=== PATIENT | female | born 1985 | race Caucasian/White ===

== ENCOUNTER → 2023-08-05 10:43 | Outpatient (REF) | payer OTHER, SELFPAY | LOC: HWRAD 10:43 | PROVIDERS: ATTENDING PHYSICIAN Nurse Practitioner Family; FAMILY PHYSICIAN Family Medicine | DX: N83.202 Unspecified ovarian cyst, left side (principal) | CPT/HCPCS: 76830; 76856 ==

== ENCOUNTER → 2023-09-09 07:48 | Outpatient (REF) | payer OTHER, SELFPAY | LOC: RAD 07:48 | PROVIDERS: ATTENDING PHYSICIAN Family Medicine | DX: R10.13 Epigastric pain (principal); K80.20 Calculus of gallbladder without cholecystitis without obstruction | CPT/HCPCS: 78226; A9537 ==

== ENCOUNTER → 2024-07-15 09:47 | Outpatient (REF) | payer OTHER, SELFPAY | LOC: RAD 09:47 | PROVIDERS: ATTENDING PHYSICIAN Internal Medicine Gastroenterology; FAMILY PHYSICIAN Family Medicine | DX: R10.13 Epigastric pain (principal); K59.00 Constipation, unspecified | CPT/HCPCS: 78264; A9541 ==

== ENCOUNTER → 2024-07-22 08:27 | Outpatient (REF) | payer OTHER, SELFPAY | LOC: RAD 08:27 | PROVIDERS: ATTENDING PHYSICIAN Internal Medicine Gastroenterology; FAMILY PHYSICIAN Family Medicine | DX: K59.00 Constipation, unspecified (principal) | CPT/HCPCS: 74270 ==

== ENCOUNTER 2024-08-13 04:22 | Day surgery (SDC) | payer OTHER, SELFPAY ==
[2024-08-13] VITALS (13 sets, daily range): BP systolic 122–145; BP diastolic 66–84; BMI 23.8; BMI 24.2
[2024-08-13] MEDS: DILAUDID 0.5 MG IV ×3 (00:44→05:10)
[2024-08-13] MEDS: ZOFRAN 4 MG IV ×2 (00:45→05:10)
[2024-08-13 00:59] LABS: HCG, Serum Qualitative Screen Negative
[2024-08-13 01:03] LABS: % Basophils 1.5 % (0-2); % Immature Granulocytes 0.9 % (0-0.5); % Lymphocytes 43.7 % (20.5-51.1); % Monocytes 9.2 % (1.7-9.3); % Neutrophils 41.7 % (42.2-75.2); Absolute Basophils 0.1 10^3/uL (0-0.2); Absolute Eosinophils 0.3 10^3/uL (0-0.7); Absolute Immature Granulocytes 0.1 10^3/uL (0-0.05); Absolute Lymphocytes 3.6 10^3/uL (1.2-3.4); Absolute Monocytes 0.8 10^3/uL (0.1-0.6); Absolute Neutrophils 3.4 10^3/uL (1.4-6.5); Hematocrit 38.3 % (37.0-47.0); Hemoglobin 13.2 g/dL (12.0-16.0); Mean Corp Hgb Conc. 34.5 g/dL (33.0-37.0); Mean Corpuscular Hgb 29.5 pg (27.0-31.0); Mean Corpuscular Volume 85.7 fL (81.0-99.0); Mean Platelet Volume 11.1 fL (7.4-10.4); Nucleated Red Blood Cells % 0 %; Platelet Count 240 10^3/uL (130-400); Red Blood Cell Count 4.47 10^6/uL (4.20-5.40); Red Cell Dist. Width 12.6 % (11.5-14.5); White Blood Cell Count 8.2 10^3/uL (4.8-10.8)
[2024-08-13 01:09] LABS: ALT (SGPT) 21 U/L (0-35); AST (SGOT) 21 U/L (14-36); Albumin 4.3 g/dl (3.5-5.0); Alkaline Phosphatase 51 U/L (38-126); Blood Urea Nitrogen 8 mg/dl (7-17); Calcium 9.8 mg/dl (8.4-10.2); Carbon Dioxide 22 mmol/L (22-30); Chloride 110 mmol/L (98-107); Estimated Creatinine Clearance 97 ml/min; Glucose 118 mg/dl (70-99); Lipase 315 U/L (23-300); Potassium 4.4 mmol/L (3.5-5.1); Sodium 141 mmol/L (135-145); Total Bilirubin 0.5 mg/dl (0.2-1.3); Total Protein 7.1 g/dl (6.3-8.2); eGFR > 60.00
--- NOTE | 2024-08-13 01:42 | ED.GENMED ---
History of Present Illness
General
Chief Complaint: Abdominal Pain
Source: patient
Exam Limitations: none
Time Seen by Provider: 08/13/24 00:41
Nursing documentation reviewed up to this point in time: agreed with
History of Present Illness
History of Present Illness:
Pleasant 38-year-old female presents to the emergency department with right upper quadrant abdominal pain. She states that the pain has been more severe than normal. Patient has had gallbladder pain since 2021. She has had a history of
cholelithiasis and is scheduled for surgery with Dr. Velasco. Derick she had severe pain which she states is much worse than her typical pain so she came into the emergency department. Reports nausea without vomiting. Patient has had several
doses of IV pain medication with minimal relief.
Past History
Past History
ED Past Medical History: HTN and Other (Irritable bowel syndrome, ovarian cyst, SVT)
ED Past Surgical History: Cardiac (Cardiac ablation), Gynecological and Orthopedic (Spinal fusion)
Social History
Tobacco: Non-smoker
Drug: None
Review of Systems
Review of Systems
Allergies reviewed?: Yes
All Other Systems: ROS reviewed and negative except as documented in HPI and ROS
Constitutional: Reports no symptoms
EENT: Reports no symptoms
Respiratory: Reports no symptoms
Cardiac: Reports no symptoms
ABD/GI: Reports abdominal pain and nausea; Denies vomiting, diarrhea or constipated
: Reports no symptoms
Musculoskeletal: Reports no symptoms
Skin: Reports no symptoms
Neurological: Reports no symptoms
Endocrine: Reports no symptoms
Hematologic/Lymphatic: Reports no symptoms
Psychiatric: Reports anxiety
Phy Exam
General Physical Exam
General Presentation: moderate distress
General age: appears stated age
General Skin: warm and dry
General Habitus: normal
General Mental: alert
General Hydration: appears well hydrated
Cardiovascular Exam
Cardiovascular Exam: regular rate/rhythm and no edema
Pulmonary Exam
Pulmonary Exam: lungs clear and no respiratory distress
Gastrointestinal Exam
Gastrointestinal Exam: normal bowel sounds, no organomegaly, non distended and guarding
Palpation: left upper quadrant: No tenderness, left lower quadrant: No tenderness, right upper quadrant: Severe tenderness and right lower quadrant: No tenderness
Neurological Exam
Neurological Exam: alert and oriented x3
Musculoskeletal Exam
Musculoskeletal Exam: full ROM and neuro vasc intact
Skin Exam
Skin Exam: normal color and warm/dry
Psychiatric Exam
Psychiatric Exam: normal mood/affect
Course
Orders/Labs/Results
Orders:
Orders
08/13/24 00:19
Test Result ONCE
08/13/24 00:36
Complete Blood Count/With Diff Urgent
Comprehensive Metabolic Panel Urgent
HCG, Serum Qualitative Screen Urgent
Lipase Urgent
08/13/24 00:41
HYDROmorphone [Dilaudid] 0.5 mg IV NOW STA
Ondansetron Injectable [Zofran] 4 mg IV NOW STA
08/13/24 00:42
US Abdomen Complete/Upper Urgent
Comment:
Reason For Exam: ruq abd pain
08/13/24 01:34
HYDROmorphone [Dilaudid] 0.5 mg .ROUTE .STK-MED ONE
08/13/24 01:43
HYDROmorphone [Dilaudid] 0.5 mg IV NOW STA
08/13/24 02:00
Piperacillin/Tazo 4.5 Gram [Zosyn] 4.5 gram in 100 ml IV NOW
Abnormal Lab Results
08/13/24
00:36
MPV 11.1 H fL
(7.4-10.4)
Abs Immat Gran (auto) 0.1 H 10^3/uL
(0-0.05)
Absolute Lymphs (auto) 3.6 H 10^3/uL
(1.2-3.4)
Absolute Monos (auto) 0.8 H 10^3/uL
(0.1-0.6)
Immature Gran % 0.9 H %
(0-0.5)
Neutrophils % 41.7 L %
(42.2-75.2)
Chloride 110 H mmol/L
(98-107)
Glucose 118 H mg/dl
(70-99)
Lipase 315 H U/L
(23-300)
08/13/24 00:36
08/13/24 00:36
Vital Signs
Initial and Last Documented VS:
Initial Vital Signs
Temp Pulse Resp BP Pulse Ox
97.5 F 71 24 139/81 100
08/13/24 00:10 08/13/24 00:10 08/13/24 00:10 08/13/24 00:10 08/13/24 00:10
Last Documented Vital Signs
Temp Pulse Resp BP Pulse Ox
97.5 F 71 24 139/81 100
08/13/24 00:10 08/13/24 00:10 08/13/24 00:10 08/13/24 00:10 08/13/24 00:10
*Radiology
Radiology exam reviewed: radiology read reviewed
*Critical Care Note
Total Time (30-74mins, 75-104mins- exclusive of procedures): Not Applicable
Update Note
Update Note:
ABDOMINAL ULTRASOUND
IMPRESSION
Multiple gallstones, difficult to evaluate the neck for an impacted stone given the shear number of stones .. No sonographic Delgado's sign (but the patient received pain medications). Borderline gallbladder wall thickening at 3.8 mm. No
pericholecystic fluid, or other signs of cholecystitis. Common bile duct is unremarkable. Constellation findings are nonspecific , consider further workup or followup ultrasound especially if symptoms persist or progress.
Kidneys and spleen are unremarkable
Remainder of the visualized upper abdomen is unremarkable.
Spoke with Dr. Dunn, general surgery who recommended patient be made n.p.o., started on Zosyn, admitted to his service with probable OR in the morning.
Patient is allergic to amoxicillin. She states that she gets stomach upset. She has had penicillin in the past without issue. She agrees to take the Zosyn.
House nurse practitioner aware and will admit patient to Dr. Dunn service.
ED Attending Note
-
Portions of this chart may have been created with voice recognition software.� Occasional wrong word or��sound alike� substitutions may have occurred due to the inherent limitations of voice recognition software.
Discharge Plan
Departure
Patient Disposition: Admit
Date of Disposition: 08/13/24
Time of Disposition: 02:24
Admit to: Med/Surg
Presentation/result/management discussed w/ accepting MD/DO: Dr. Dunn
Discharge Problem:
Biliary colic, Cholelithiasis, Probable cholecystitis
Prescriptions:
No Action
acetaminophen 325 MG tablet
650 mg PO Q3HPRN PRN (Reason: mild pain) 0RF
multivitamin [One-A-Day Essential] 1 EACH tablet
1 ea PO DAILY
diltiazem HCl 120 MG tablet
120 mg PO HS
Referrals:
Jose Antonio Hall, DO [Family Provider] -
Interventions
Interventions:
*Risk Screen - Suicide Last Done: 08/13/24 00:10
*ED- Fall Risk Assessment Last Done: 08/13/24 00:55
*ED COVID-19 Vaccine History Last Done: 08/13/24 00:55
OR-Rlvpli-Pshdknnxkm Assessment Last Done: 08/13/24 00:55
Discharge Date and Time
Print Language: KYRGYZ
--- NOTE | 2024-08-13 02:32 | HPS.HSE ---
Addendum entered and electronically signed by Kurt Dunn MD 08/13/24 09:05:
I saw and examined the patient independently.
The [employer]'s note was reviewed and I agree with the note, assessment and plan except where noted below.
Comment: This is a 38-year-old female who presents with postprandial right upper quadrant pain, known cholelithiasis and diagnosed with biliary colic with plan for surgery in 2 weeks however had her most significant attack last night which prompted
her to come into our ED. She draw tender to palpation in the right upper quadrant concerning for acute cholecystitis.
Will plan for laparoscopic cholecystectomy with cholangiogram in the OR today.
N.p.o., IV fluids, IV Zosyn.
Risks/Benefits/Alternatives, expected postoperative course and possible complications (bleeding, infection, injury to surrounding structures, acute/chronic pain) discussed at length. Patient wishes to proceed with surgery. All questions answered.
Consent obtained.
I spent 45 minutes in total for the care of this patient today including direct patient care and counseling, reviewing labs, imaging, coordination of care, as well as documentation.
Original Note:
Family Physician
-
Family Physician: Jose Antonio Hall
Chief Complaint
-
Abdominal pain
History of Present Illness
Patient is a 38 year old female, with past medical history significant for HTN, Hx of SVT s/p ablation 2006, IBS, ovarian cyst, hysterectomy, lumbar fusion 2004, who presents to the emergency department with right upper quadrant pain. She states it
is more severe than normal. Patient with gall bladder pain since 2001. She has had a history of cholelithiasis and is scheduled for surgery with Dr. Velasco on 08/25/2024. Tonight she had severe pain which she states is much worse than her typical
pain so she came into the emergency department. Reports nausea without vomiting. Patient has had several doses of IV pain medication with minimal relief.
In the emergency department, vital signs stable, afebrile. Lipase noted to be elevated at 315. Otherwise, labs unremarkable. Patient received Dilaudid and Zofran for symptom management in the emergency dpeartment.
Abdominal ultrasound impression:
Multiple gallstones, difficult to evaluate the neck for an impacted stone given the shear number of stones .. No sonographic Delgado's sign (but the patient received pain medications). Borderline gallbladder wall thickening at 3.8 mm. No
pericholecystic fluid, or other signs of cholecystitis. Common bile duct is unremarkable. Constellation findings are nonspecific , consider further workup or followup ultrasound especially if symptoms persist or progress.
Kidneys and spleen are unremarkable
Remainder of the visualized upper abdomen is unremarkable.
Emergency provider spoke with Dr. Dunn, General Surgery, who will accept patient to be admitted to his service. Patient made NPO, started on Zosyn, pain medication, antiemetics and IV fluids. Plan for probable OR in the morning. Note: Patient is
allergic to amoxicillin. States that she gets stomach upset. She has had penicillin in the past without issue. Patient agreeable to take Zosyn.
Medical History
Past Medical History
Past Medical History: Reports Arrhythmia (Hx of SVT, ablation in 2006), HTN and Other (Irritable bowel syndrome, ovarian cyst)
Past Surgical History: Reports Cardiac (Ablation 2006), (x2, 2015, 2017), Gynocological (Emergency hysterectomy, 2017; etopic post hysterectomy) and Orthopedic (Lumbar fusion, 2004)
Social History
Tobacco: Non-smoker
Alcohol: None
Drug: None
Personal:
Living: With Family
Employment: Employed
Family History
Family History: Not pertinent
Allergies / Home Medications
Allergies reflects when Allergies were last updated in [facility].
Home Medications with original date entered in [facility]
Allergy/Medication List:
Patient Allergies
Allergy/AdvReac Type Severity Reaction Status Date / Time
adhesive Allergy Unknown Unknown Verified 08/13/24 00:10
amoxicillin Allergy Unknown Verified 08/13/24 00:10
Home Medications
�Medication �Instructions �Recorded
norgestrel-ethinyl estradiol 1 PO DAILY 08/13/24
propranolol 10 mg tablet 10 mg PO BID 08/13/24
propranolol 20 mg tablet 20 mg PO QHS 08/13/24
Review of Systems
-
History Source: Patient
Constitutional: Reports No Symptoms
EENT: Reports No Symptoms
Respiratory: Reports No Symptoms
Cardiac: Reports No Symptoms
Abdomen/GI: Reports Abdominal Pain (right upper quadrant) and Nausea
: Reports No Symptoms
Musculoskeletal: Reports No Symptoms
Skin: Reports No Symptoms
Neurological: Reports No Symptoms
Endocrine: Reports No Symptoms
Hematologic/Lymphatic: Reports No Symptoms
Psych: Reports No Symptoms
Physical Exam
Vital Signs
Vital Signs
Temp Pulse Resp BP Pulse Ox
97.5 F 71 24 139/81 100
08/13/24 00:10 08/13/24 00:10 08/13/24 00:10 08/13/24 00:10 08/13/24 00:10
Physical Exam
General: Appears in Distress (moderate) and Pain (right upper quadrant)
HEENT: NormoCephalic, Moist mucous membranes and PERRLA
Respiratory: Clear and Non Labored Respirations
Cardiac: S1/S2 and Regular Rhythm
GI: Normal Bowel Sounds and Tender (right upper quadrant)
Musculoskeletal: No Edema
Neuro: AO x 3
Psych: Intact Judgment/Insight
Laboratory Results
-
08/13/24 00:36
08/13/24 00:36
Laboratory Results
Total Bilirubin 0.5 mg/dl (0.2-1.3) 08/13/24 00:36
AST 21 U/L (14-36) 08/13/24 00:36
ALT 21 U/L (0-35) 08/13/24 00:36
Alkaline Phosphatase 51 U/L (38-126) 08/13/24 00:36
Lipase 315 U/L (23-300) H 08/13/24 00:36
Data Reviewed
-
Ultrasound: Report Reviewed by me
Lab Data: Labs Reviewed by me
Impression/Plan
-
IMPRESSION:
Patient is a 38 year old female, with past medical history significant for HTN, Hx of SVT s/p ablation 2006, IBS, ovarian cyst, hysterectomy, lumbar fusion 2004, who presents to the emergency department with right upper quadrant pain.
PLAN:
Biliary colic
Cholelithiasis
Probable Cholecystitis
- Admit to Med/Surg, Dr. Dunn, General Surgery service
- NPO
- IV fluids NSS @ 85 mls/hr
- Pain medication/antiemetics
-IV Zosyn
HTN
- Continue Propanolol
DVT Prophylaxis: SCD's
Code Status: Full code
[2024-08-13] MEDS: ZOSYN 100 IV (03:00)
[2024-08-13] MEDS: NSS 1000 IV (05:09)
--- NOTE | 2024-08-13 05:44 | PTCARENOTE ---
Pt arrived to floor via stretcher from the ED. Pt AAOx3, ambulatory into room independently without difficulty. EKG obtained per MD order, SB with SA with HR in the 50's. POX 97% on RA. Pt with hx of Raynods pox difficulty to obtain on finders, ear
POX obtained. Hypo bowel, round abd. Right upper quadrant ABD pain 5/10, pain medication administered as ordered. Palpable peripheral pulses present. Pale skin, red calderon from tele leads noted. Left hand int in place infusing NSS@85ml/hr. Zofran
administered for Nausea. NPO status maintained for possible surgery. Pt now resting comfortably. Will continue to monitor.
[2024-08-13 06:49] LABS: Hematocrit 41.1 % (37.0-47.0); Hemoglobin 13.8 g/dL (12.0-16.0); Mean Corp Hgb Conc. 33.6 g/dL (33.0-37.0); Mean Corpuscular Hgb 29.4 pg (27.0-31.0); Mean Corpuscular Volume 87.4 fL (81.0-99.0); Mean Platelet Volume 11.4 fL (7.4-10.4); Platelet Count 228 10^3/uL (130-400); Red Cell Dist. Width 12.6 % (11.5-14.5); White Blood Cell Count 8.7 10^3/uL (4.8-10.8)
[2024-08-13 07:11] LABS: Blood Urea Nitrogen 7 mg/dl (7-17); Calcium 9.9 mg/dl (8.4-10.2); Carbon Dioxide 25 mmol/L (22-30); Chloride 107 mmol/L (98-107); Estimated Creatinine Clearance 97 ml/min; Glucose 126 mg/dl (70-99); Lipase 124 U/L (23-300); Potassium 4.5 mmol/L (3.5-5.1); Sodium 142 mmol/L (135-145); eGFR > 60.00
[2024-08-13] MEDS: INDERAL 10 MG PO ×2 (08:22→17:09)
--- NOTE | 2024-08-13 08:56 | W.SUR.PREOP ---
Pre-Operative Surgical Note
-
I have examined this patient prior to the performance of the scheduled procedure.
The patient's condition is unchanged from the time of the current History and
Physical and the patient is able to undergo the scheduled procedure.
[2024-08-13] MEDS: ZOSYN 50 IV ×2 (09:57→15:41)
--- NOTE | 2024-08-13 12:26 | W.IMMPOSTOP ---
Surgical Immed Post Op Note
-
Primary Surgeon: Kurt Dunn MD
Assisting Surgeon: None
Pre-op Diagnosis: Acute cholecystitis
Post-op Diagnosis: Acute cholecystitis, umbilical hernia
Procedure Performed:
1. Laparoscopic cholecystectomy with cholangiogram
2. Open primary umbilical hernia repair
Anesthesia Type: General
Specimen / Cultures: Gallbladder and contents
Estimated Blood Loss: 7 cc
Complications: None
Operative Findings: 1.5 cm umbilical hernia containing preperitoneal fat reduced/resected at beginning of case. Standard for port laparoscopic cholecystectomy. Markedly distended gallbladder, decompressed with an aspiration needle to allow for
better manipulation of the gallbladder. Critical view of safety was obtained prior to a cholangiogram which demonstrated no distal filling defects and normal biliary anatomy. The umbilical hernia defect was closed with a running 0 PDS suture.
POST OP PLAN:
Imaging: None
Labs: Routine AM, if still admitted
Diet: Advance to Regular as tolerated
Analgesia: Tylenol 650mg q6 Saji, Tierra 5mg q6 PRN, Dilaudid 0.5mg q2h PRN
Neuro/vascular checks: q4h
AC/AP: Hold Therapeutic AC, Ok for DVT PPx
Activity: Ad Tiffany
Wound/Incisions/Drains: Routine
Abx: None
Dispo: RNF, anticipate discharge home later today pending clinical course.
--- NOTE | 2024-08-13 12:29 | OR.RPT ---
Operative Report
Operative Report
Patient Name: Blanca Barney
: 1985
Date of Operation: 08/13/2024
Preoperative Diagnosis: Acute cholecystitis
Postoperative Diagnosis: Acute cholecystitis, umbilical hernia
Procedure(s):
Laparoscopic Cholecystectomy with Cholangiogram
Open primary umbilical hernia repair
Surgeon(s):
Dr. Dunn
Van Loader(s):
TRAVIS Avilez
Anesthesia: General
Estimated Blood Loss: 7 cc
Urine Output: None
Drains/Lines/Implants: None
Specimens:
1. Gallbladder and contents
HPI/Surgical Indications:
This is a 38-year-old female who presents with 1 day of significant postprandial right upper quadrant abdominal pain, in the setting of known biliary colic. Exam, labs and imaging are consistent with early acute cholecystitis.
Risks/Benefits/Alternatives were discussed at length, and the patient agreed to proceed with surgery.
Operative Findings: 1.5 cm umbilical hernia containing preperitoneal fat reduced/resected at beginning of case. Standard for port laparoscopic cholecystectomy. Markedly distended gallbladder, decompressed with an aspiration needle to allow for
better manipulation of the gallbladder. Critical view of safety was obtained prior to a cholangiogram which demonstrated no distal filling defects and normal biliary anatomy. The umbilical hernia defect was closed with a running 0 PDS suture.
Procedure Description:
The patient was brought to the Operating Room and placed in the supine position with one arm tucked. Following uneventful induction of general endotracheal anesthesia, an orogastric tube was placed. The abdomen was prepped and draped in the usual
sterile fashion. A timeout was performed confirming the procedure, consent, and that IV antibiotics were infused and sequential compression devices were confirmed to be on. We began by making an infraumbilical incision and isolating her umbilical
hernia off of the underlying stalk. The hernia defect measured 1.5 cm. The hernia sac was opened and the abdomen was entered using an infraumbilical open Davis technique with a 12 mm balloon-tipped trocar. Pneumoperitoneum to 15 mmHg pressure
was obtained without difficulty and we confirmed that no injury had occurred during our entry. The patient was positioned in reverse Trendelenberg and rotated with the right side up slightly. Three (3) 5mm trocars were then placed along the right
subcostal margin. The gallbladder was emptied using a decompressing needle through the fundus of the gallbladder with evacuation of hydrops before A locking grasping forceps was placed on the fundus of the gallbladder where it was then retracted
cephalad and to the right. Using appropriate grasping instruments, the peritoneum overlying the triangle of Calot was incised and extended superiorly on both the anterior and posterior gallbladder noriega. The infundibulum was dissected off the
cystic plate. The cystic triangle was dissected until a critical view of safety was achieved. The cystic artery was medialized, dissected and controlled with 2 proximal clips and 1 distal. The cystic duct/gallbladder junction in turn was identified,
dissected circumferentially and a clip was placed. A ductotomy was made and a cholangiocatheter on an Jin clamp was inserted into the cystic duct. A C-arm was draped and brought into the field. An intra-operative cholangiogram was performed and
was noted to have:
No filling defects in the biliary tree
No significant biliary dilation
Brisk flow of contrast into the duodenum
Normal biliary anatomy
The catheter was then removed and the cystic duct was controlled with a clip followed by a 0 PDS Endoloop.. After ensuring both the artery and duct were divided, the gallbladder was freed from the liver using electrocautery. There was no spillage
of bile or stones. The gallbladder bed was inspected and excellent hemostasis was obtained. The gallbladder was extracted through the 12 mm trocar site using an endocatch bag. The abdomen was again irrigated and excellent hemostasis was assured.
All remaining trocars were then removed and the pneumoperitoneum was evacuated. The umbilical hernia defect was closed using running 0 PDS suture. All trocar sites were closed at the skin level using 4-0 Monocryl followed by Dermabond. Overall,
the patient tolerated the procedure well and was taken to the Recovery Room postoperatively in stable condition.
I was the attending physician and performed the procedure with from the [facility] above assistance. I was present for all portions of the case, excluding skin closure.
Kurt Dunn MD
--- NOTE | 2024-08-13 13:09 | PTCARENOTE ---
Patient returned to her room from PACU post laparoscopic cholecystectomy.She is alert and rates her pain at a 4 out of 10.All 4 incisions are open to air without drainage.Vital signs are stable.The patient is in her bed with the call vincent in place.
--- NOTE | 2024-08-13 13:15 | CM ---
Reviewed the chart notes. Patient resides with spouse in a multi-level home. No DME/VN/SNF in past. Home today. Spouse will provide transportation.
--- NOTE | 2024-08-13 14:10 | PTCARENOTE ---
Patient returned from Pacu to her room post laparoscopic cholecystectomy and cholangiogram.The patient is alert and oriented.She rates her pain at a 4 out of 10.All 4 incisions are open to air without drainage.Vital signs are stable.The patient is
hopeful for discharge later this evening.The patient is in her bed with the call vincent in reach.
[2024-08-13] MEDS: ULTRAM 50 MG PO (16:17)
[2024-08-13] MEDS: ERYTHROMYCIN 0.5% OPHTHALMIC OINTMENT 1 APPLIC LEFT EYE (17:09)
== END 2024-08-13 18:15 | disposition home or self-care (01) ==
LOC: PACU 04:22
PROVIDERS: Nurse Practitioner Family; ATTENDING PHYSICIAN Surgery; EMERGENCY PHYSICIAN Student in an Organized Health Care Education/Training Program; FAMILY PHYSICIAN Family Medicine
DX: K80.10 Calculus of gallbladder with chronic cholecystitis without obstruction (principal); K42.9 Umbilical hernia without obstruction or gangrene
CPT/HCPCS: 47563; 88304; 74300; 76000; 76700; 80048; 80053; 83690; 84703; 85025; 85027; 93005; 96365; 96375; 96376; 99284; A4300

== ENCOUNTER → 2025-03-09 10:18 | Outpatient (REF) | payer OTHER, SELFPAY | LOC: WDC 10:18 | PROVIDERS: ATTENDING PHYSICIAN Physician Assistant Medical | DX: N64.4 Mastodynia (principal); N63.0 Unspecified lump in unspecified breast | CPT/HCPCS: 76642; 77062; 77066 ==